=== PATIENT | male | born 1990 | race Caucasian/White ===

== ENCOUNTER → 2016-12-15 | Outpatient (CLI) | payer OTHER ==
--- NOTE | 2016-12-15 16:38 | REP ---
Digital diagnostic bilateral mammography with CAD and focused bilateral retroareolar breast ultrasound: History: 26-year-old male with left breast mass. Question malignancy. The patient reports a lump times 1 week in the left breast retroareolar region. A skin marker is affixed to the skin at the site of the lump by the patient. Findings: CC and MLO views of the left and right breast are obtained. There is a non mass-like pattern of mild subareolar fibroglandular tissue in the subareolar region on the left in the area of the palpable lump. No mass lesion is seen. There are normal appearing lymph nodes in each axilla. Right breast views are unremarkable. No microcalcification or spiculation is seen. No worrisome skin change is seen. Focused bilateral retroareolar sonography findings: Posterior to the nipple where the patient feels a lump there is a heterogeneous fibroglandular background echotexture. No similar findings on the right. No cyst or mass is seen on either side. Impression: BIRADS category II benign bilateral breast imaging. Gynecomastia pattern mild in degree on the left. Clinical follow-up is advised. This negative report should not dissuade one from biopsy of a palpable lump depending on its clinical characteristics. This mammogram was interpreted with the aid of an FDA-approved computer-aided detection system. The patient states she/he had a clinical breast exam in November 2016. The patient letter being requested is male letter number [id number]. Signed by Oneil Rice MD 12/15/2016 05:15 P
== END ==
LOC: M RAD 15:18
PROVIDERS: ATTEND Physician Assistant
DX: N63 Unspecified lump in breast (principal)